=== PATIENT | male | born 1935 | race Caucasian/White ===

== ENCOUNTER 2017-02-20 14:34 | Inpatient (IN) | payer MEDICARE ==
[~2017-02-20] VITALS: Ht 170.2 cm; Wt 75.9 kg
[2017-02-20 14:42] VITALS: BP 160/73; PULSE 71; RESP 16; TEMP 98.4; O2SAT 96
[2017-02-20] MEDS ORDERED: HYDR12.56 PO (15:56)
[2017-02-20] MEDS ORDERED: OMEP20TA93 PO (15:56)
[2017-02-20] MEDS ORDERED: SIMV20TA PO (15:56)
[2017-02-20] MEDS ORDERED: HYDR-3516 PO (15:56)
[2017-02-20] MEDS ORDERED: AMLO10TA2 PO (15:56)
--- NOTE | 2017-02-20 16:22 | PD ---
HPI Chief Complaint: Dizziness Time Seen by Provider: 16:10 Travel History International Travel<30 days: No Contact w/Intl Traveler<30days: No Traveled to known affect area: No History of Present Illness HPI This patient complains of multiple things. For the last couple of days he's had a prominent cough bringing up phlegm. Congested and has had a runny nose. He complains of muscular pains in both legs. He is denies fever. Symptoms severity is moderate. No alleviating factors. Feeling dizzy and lightheaded. He denies room spinning vertigo-type sensations. No headache or chest pain. He has had no syncope. No exacerbating factors. Patient is from out of town. PFSH Past Medical History Cardiovascular Problems: Yes (CABG) ?: Not Past Surgical History Coronary Artery Bypass Graft: Yes (x 5 vessel) Social History Alcohol Use: No Tobacco Use: No Substance Use: No Allergies-Medications (Allergen,Severity, Reaction): Coded Allergies: No Known Allergies (Verified Allergy, Unknown, 02/20/17) Reported Meds & Prescriptions Reported Meds & Active Scripts Active Reported Omeprazole 20 Mg Tab 20 Mg PO DAILY Simvastatin 20 Mg Tab 20 Mg PO DAILY Hydrocodone-Acetaminophen 5-325 mg Tab 1 Tab PO Q4H PRN Hydrochlorothiazide 12.5 Mg Tab 12.5 Mg PO DAILY Amlodipine (Amlodipine Besylate) 10 Mg Tab 10 Mg PO DAILY Review of Systems General / Constitutional: No: Fever Eyes: No: Visual changes HENT: Positive: Lightheadedness, Congestion, No: Headaches Cardiovascular: No: Chest Pain or Discomfort Respiratory: Positive: Cough, No: Shortness of Breath Gastrointestinal: Positive: Nausea, No: Abdominal Pain Genitourinary: No: Dysuria Musculoskeletal: Positive: Myalgias, No: Pain Skin: No Rash Neurologic: Positive: Dizziness, No: Weakness Psychiatric: No: Depression Endocrine: No: Polydipsia Hematologic/Lymphatic: No: Easy Bruising Physical Exam Narrative GENERAL: Well-nourished, well-developed patient in no apparent distress. SKIN: Focused skin assessment reveals no rash and nodules. Skin is Warm and dry. HEAD: Atraumatic. Normocephalic. EYES: Pupils equal and round. No scleral icterus. No injection or drainage. ENT: No nasal bleeding or discharge. Mucous membranes pink and moist. NECK: Trachea midline. No JVD. CARDIOVASCULAR: Regular rate and rhythm. No murmur appreciated. RESPIRATORY: No accessory muscle use. Clear to auscultation. Breath sounds equal bilaterally. GASTROINTESTINAL: Abdomen soft, non-tender, nondistended. Hepatic and splenic margins not palpable. MUSCULOSKELETAL: No obvious deformities. No clubbing. No cyanosis. No edema. NEUROLOGICAL: Awake and alert. No obvious cranial nerve deficits. Motor grossly within normal limits. Normal speech. PSYCHIATRIC: Appropriate mood and affect; insight and judgment normal. Data Data Last Documented VS Vital Signs Date Time Temp Pulse Resp B/P (MAP) Pulse Ox O2 Delivery O2 Flow Rate FiO2 02/20/17 14:42 98.4 71 16 160/73 (102) 96 Orders Orders Iv Access Insert/Monitor (02/20/17 16:17) Complete Blood Count With Diff (02/20/17 16:17) Basic Metabolic Panel (Bmp) (02/20/17 16:17) Electrocardiogram (02/20/17 ) Chest, Single Ap (02/20/17 ) Ondansetron Inj (Zofran Inj) (02/20/17 16:45) Admit Order (Ed Use Only) (02/20/17 17:42) Potassium Chloride Eff (K-Lyte Cl Eff) (02/20/17 17:45) Ns 1000ml Wide Open 2000 Ml/Hr (02/20/17 17:45) Labs Laboratory Tests Test 02/20/17 16:35 White Blood Count 5.1 TH/MM3 Red Blood Count 4.98 MIL/MM3 Hemoglobin 13.1 GM/DL Hematocrit 39.8 % Mean Corpuscular Volume 79.9 FL Mean Corpuscular Hemoglobin 26.4 PG Mean Corpuscular Hemoglobin Concent 33.0 % Red Cell Distribution Width 13.2 % Platelet Count 258 TH/MM3 Mean Platelet Volume 7.1 FL Neutrophils (%) (Auto) 76.1 % Lymphocytes (%) (Auto) 16.8 % Monocytes (%) (Auto) 6.8 % Eosinophils (%) (Auto) 0.2 % Basophils (%) (Auto) 0.1 % Neutrophils # (Auto) 3.9 TH/MM3 Lymphocytes # (Auto) 0.9 TH/MM3 Monocytes # (Auto) 0.3 TH/MM3 Eosinophils # (Auto) 0.0 TH/MM3 Basophils # (Auto) 0.0 TH/MM3 CBC Comment DIFF FINAL Differential Comment Blood Urea Nitrogen 17 MG/DL Creatinine 0.90 MG/DL Random Glucose 134 MG/DL Calcium Level 8.5 MG/DL Sodium Level 116 MEQ/L Potassium Level 2.8 MEQ/L Chloride Level 80 MEQ/L Carbon Dioxide Level 25.6 MEQ/L Anion Gap 10 MEQ/L Estimat Glomerular Filtration Rate 81 ML/MIN MDM Medical Decision Making Medical Screen Exam Complete: Yes Emergency Medical Condition: Yes Medical Record Reviewed: Yes Differential Diagnosis Pneumonia, bronchitis, flu syndrome, hypokalemia, vertigo Narrative Course I have reviewed the patient's electronic medical record. Etiology of the patient's diffuse range of symptoms is unclear from history and physical alone. IV placed CBC is normal Metabolic profile shows profound hyponatremia 116 in profound hypokalemia of 2.8 I reviewed his EKG which shows rate controlled A. fib in the 70s I reviewed his chest x-ray shows cardiomegaly without pulmonary edema Patient is neurologically intact without objective deficit. I don't see evidence of CVA. He has a lot of vague global symptomatology. Symptoms are explained by electrolytes to a large degree. He also appears to be a new onset A. fib I started some normal saline and gave him a potassium replacement dose He will require inpatient hospitalization for correction of sodium and potassium deficits. His hydrochlorothiazide is a likely candidate and he does drink a lot of free water Call is in place to hospitalist to discuss Diagnosis Primary Impression: Acute hyponatremia Additional Impressions: Acute hypokalemia New onset a-fib Admitting Information Admitting Physician Requests: Admit Ángel Rodriguez MD Feb 20, 2017 16:22
--- NOTE | 2017-02-20 16:36 | RADRPT ---
EXAM DATE/TIME: 02/20/2017 16:26 [facility] COMPARISON: No previous studies available for comparison. INDICATIONS : Cough, congestion. MEDICAL HISTORY : None. SURGICAL HISTORY : CABG. ENCOUNTER: Initial ACUITY: 2 days PAIN SCORE: 0/10 LOCATION: Bilateral chest FINDINGS: A single view of the chest demonstrates the lungs to be symmetrically aerated without evidence of mas s, infiltrate or effusion. Mild cardiomegaly. No pulmonary vascular engorgement. Median sternotomy wi res. Osseous structures are intact. CONCLUSION: Mild cardiomegaly. Clear lungs. Jay Seals Jr., MD on February 20, 2017 at 16:33 Board Certified Radiologist. This report was verified electronically.
[2017-02-20] MEDS ORDERED: ONDANSETRON HCL 4 MG/2 ML VIAL IVP ONE (16:45)
[2017-02-20 16:56] LABS: AUTOMATED NEUTROPHIL # 3.9 TH/MM3 (1.8-7.7); BASOPHIL % 0.1 % (0.0-2.0); EOSINOPHIL % 0.2 % (0.0-4.0); HEMATOCRIT 39.8 % (39.0-51.0); HEMO FLAGS DIFF FINAL; LYMPH % 16.8 % (9.0-44.0); LYMPHOCYTE # 0.9 TH/MM3 (1.0-4.8); MEAN CELL VOLUME 79.9 FL (80.0-100.0); MEAN CORPUSCULAR HEMOGLOBIN 26.4 PG (27.0-34.0); MONO % 6.8 % (0.0-8.0); NEUT % 76.1 % (16.0-70.0); PLATELET COUNT 258 TH/MM3 (150-450); RED BLOOD COUNT 4.98 MIL/MM3 (4.50-5.90); RED CELL DISTRIBUTION WIDTH 13.2 % (11.6-17.2); WHITE BLOOD COUNT 5.1 TH/MM3 (4.0-11.0)
[2017-02-20 17:03] LABS: BICARBONATE 25.6 MEQ/L (21.0-32.0)
[2017-02-20 17:05] LABS: POTASSIUM 2.8 MEQ/L (3.5-5.1)
[2017-02-20] MEDS ORDERED: POTASSIUM CHLORIDE 25 MEQ EFFERVESCENT TAB PO ONE ×2 (17:45→23:45)
[2017-02-20] MEDS ORDERED: SODIUM CHLOR 0.9% 1000 ML INJ 1,000 ML IV ONE (17:45)
[2017-02-20] MEDS: SODIUM CHLOR 0.9% 1000 ML INJ 1,000 ML IV SCH (18:14)
[2017-02-20] MEDS ORDERED: ACETAMINOPHEN 325 MG TAB PO PRN (18:15)
[2017-02-20] MEDS ORDERED: NALOXONE HCL 0.4 MG/ML AMP IV PUSH PRN (18:15)
[2017-02-20] MEDS ORDERED: SENNOSIDES 8.6 MG TAB PO PRN (18:15)
[2017-02-20] MEDS ORDERED: SODIUM CHLORIDE 0.9% FLUSH 10 ML FLUSH IV FLUSH PRN (18:15)
[2017-02-20] MEDS ORDERED: ONDANSETRON HCL 4 MG/2 ML VIAL IVP PRN (18:15)
--- NOTE | 2017-02-20 18:24 | HHI.HP ---
HPI Service [facility] Primary Care Physician Non-Staff Admission Diagnosis Hyponatremia,hypokalemia Diagnoses: (1) Acute hypokalemia (2) Acute hyponatremia (3) New onset a-fib Chief Complaint: Dizziness Productive cough Travel History International Travel<30 Days: No Contact w/Intl Traveler <30 Da: No Traveled to Known Affected Are: No History of Present Illness Written by Flavai Horton, acting as scribe for Dr. Regalado on 02/20/17 at 18:14. Mr. Benites is a 81-year-old male patient with a known medical history of hypertension and CAD with previous CABG who presented to the ED with complaints of generalized weakness, dizziness and cough x 1 week. Patient states that he is from [facility] and is traveling with his when he noticed roughly a week ago that he developed a productive cough and nasal congestion which progressively has got worse despite use of OTC robitussin and Mucinex. Patient states he has had no appetite and has not ate very much in the past week. Does admit to a spell of lightheadedness and dizziness this am when getting out of the shower which led to his presentation. Denies any recent chest pain, headache , shortness of breath, fevers, abdominal pain, nausea, vomiting, diarrhea or dysuria. Review of Systems Constitutional: COMPLAINS OF: Chills, Dizziness, DENIES: Fever Eyes: DENIES: Blurred vision, Diplopia Ears, nose, mouth, throat: DENIES: Hearing loss Respiratory: COMPLAINS OF: Cough, Sputum production, Shortness of breath Cardiovascular: DENIES: Chest pain Gastrointestinal: DENIES: Abdominal pain, Bloody stools, Constipation, Diarrhea , Nausea Hematologic/lymphatic: DENIES: Bruising Psychiatric: DENIES: Anxiety Except as stated in HPI: all other systems reviewed are Neg Past Family Social History Past Medical History CAD with history of CABG Hypertension Past Surgical History CABG x 5 vessels Bilateral hip replacement Prostatectomy Reported Medications Active Reported Omeprazole 20 Mg Tab 20 Mg PO DAILY Simvastatin 20 Mg Tab 20 Mg PO DAILY Hydrocodone-Acetaminophen 5-325 mg Tab 1 Tab PO Q4H PRN Hydrochlorothiazide 12.5 Mg Tab 12.5 Mg PO DAILY Amlodipine (Amlodipine Besylate) 10 Mg Tab 10 Mg PO DAILY Allergies: Coded Allergies: No Known Allergies (Verified Allergy, Unknown, 02/20/17) Active Ordered Medications Current Medications Medications (Trade) Dose Ordered Sig/Nereyda Route Start Time Stop Time Status Last Admin Sodium Chloride 1,000 ml @ 250 mls/hr Q4H ONCE IV 02/20/17 17:45 02/20/17 21:44 Family History Maternal and paternal medical history significant for cardiovascular disease. Social History Denies any tobacco use. Denies any alcohol use. Denies any illicit drug use. Physical Exam Vital Signs Vital Signs Date Time Temp Pulse Resp B/P (MAP) Pulse Ox O2 Delivery O2 Flow Rate FiO2 02/20/17 14:42 98.4 71 16 160/73 (102) 96 Physical Exam GENERAL: This is a well-nourished, well-developed patient, lying in bed comfortably in no apparent distress. SKIN: No rashes, ecchymoses or lesions. Warm and dry. HEENT: Atraumatic. Normocephalic. Pupils equal round and reactive. Extraocular motions intact. No scleral icterus. No injection or drainage. Nose without bleeding. Airway patent. NECK: Trachea midline. No JVD or lymphadenopathy. Supple, nontender, no meningeal signs. CARDIOVASCULAR: Irregularly irregular rhythm, No murmurs, gallops, or rubs. RESPIRATORY: Clear to auscultation. Breath sounds equal bilaterally. No wheezes , rales, or rhonchi. GASTROINTESTINAL: Abdomen soft, non-tender, nondistended. No guarding. MUSCULOSKELETAL: Extremities without clubbing, cyanosis, or edema. No joint tenderness, effusion, or edema noted. NEUROLOGICAL: Awake and alert. Cranial nerves II through XII intact. Motor and sensory grossly within normal limits. Five out of 5 muscle strength in all muscle groups. Normal speech. Laboratory Laboratory Tests Test 02/20/17 16:35 White Blood Count 5.1 Red Blood Count 4.98 Hemoglobin 13.1 Hematocrit 39.8 Mean Corpuscular Volume 79.9 Mean Corpuscular Hemoglobin 26.4 Mean Corpuscular Hemoglobin Concent 33.0 Red Cell Distribution Width 13.2 Platelet Count 258 Mean Platelet Volume 7.1 Neutrophils (%) (Auto) 76.1 Lymphocytes (%) (Auto) 16.8 Monocytes (%) (Auto) 6.8 Eosinophils (%) (Auto) 0.2 Basophils (%) (Auto) 0.1 Neutrophils # (Auto) 3.9 Lymphocytes # (Auto) 0.9 Monocytes # (Auto) 0.3 Eosinophils # (Auto) 0.0 Basophils # (Auto) 0.0 CBC Comment DIFF FINAL Differential Comment Blood Urea Nitrogen 17 Creatinine 0.90 Random Glucose 134 Calcium Level 8.5 Sodium Level 116 Potassium Level 2.8 Chloride Level 80 Carbon Dioxide Level 25.6 Anion Gap 10 Estimat Glomerular Filtration Rate 81 Result Diagram: 02/20/17 1635 02/20/17 1635 Imaging Last Impressions Chest X-Ray 02/20/17 0000 Signed Impressions: Service Date/Time: Monday, February 20, 2017 16:26 - CONCLUSION: Mild cardiomegaly. Clear lungs. Jay Seals Jr., MD Septic Shock Reassessment Septic shock perfusion: reassessment completed Caprini VTE Risk Assessment Caprini VTE Risk Assessment: Mod/High Risk (score >= 2) Caprini Risk Assessment Model Point Value = 1 Point Value = 2 Point Value = 3 Point Value = 5 Age 41-60 Minor surgery BMI > 25 kg/m2 Swollen legs Varicose veins or History of unexplained or recurrent spontaneous Oral contraceptives or hormone replacement Sepsis (< 1 month) Serious lung disease, including pneumonia (< 1 month) Abnormal pulmonary function Acute myocardial infarction Congestive heart failure (< 1 month) History of inflammatory bowel disease Medical patient at bed rest Age 61-74 Arthroscopic surgery Major open surgery (> 45 min) Laparoscopic surgery (> 45 min) Malignancy Confined to bed (> 72 hours) Immobilizing plaster cast Central venous access Age >= 75 History of VTE Family history of VTE Factor V Leiden Prothrombin [id number] Lupus anticoagulant Anticardiolipin antibodies Elevated serum homocysteine Heparin-induced thrombocytopenia Other congenital or acquired thrombophilia Stroke (< 1 month) Elective arthroplasty Hip, pelvis, or leg fracture Acute spinal cord injury (< 1 month) Prophylaxis Regimen Total Risk Factor Score Risk Level Prophylaxis Regimen 0-1 Low Early ambulation 2 Moderate Order ONE of the following: *Sequential Compression Device (SCD) *Heparin 5000 units SQ BID 3-4 Higher Order ONE of the following medications: *Heparin 5000 units SQ TID *Enoxaparin/Lovenox 40 mg SQ daily (WT < 150 kg, CrCl > 30 mL/min) *Enoxaparin/Lovenox 30 mg SQ daily (WT < 150 kg, CrCl > 10-29 mL/min) *Enoxaparin/Lovenox 30 mg SQ BID (WT < 150 kg, CrCl > 30 mL/min) AND/OR *Sequential Compression Device (SCD) 5 or more Highest Order ONE of the following medications: *Heparin 5000 units SQ TID (Preferred with Epidurals) *Enoxaparin/Lovenox 40 mg SQ daily (WT < 150 kg, CrCl > 30 mL/min) *Enoxaparin/Lovenox 30 mg SQ daily (WT < 150 kg, CrCl > 10-29 mL/min) *Enoxaparin/Lovenox 30 mg SQ BID (WT < 150 kg, CrCl > 30 mL/min) AND *Sequential Compression Device (SCD) Assessment and Plan Problem List: (1) Acute hyponatremia ICD Code: E87.1 - Hypo-osmolality and hyponatremia Status: Acute Plan: NA 116 on presentation. Will order a urine osmolarity and sodium. Follow. Will add a phosphorus level to labs as well, follow. Continue neuro checks. Will also check a TSH. Control nausea, Zofran available PRN. Follow BMP in am. (2) Acute hypokalemia ICD Code: E87.6 - Hypokalemia Status: Acute Plan: Potassium 2.8 on presentation. Monitor for arrhythmias on telemetry. Replacement ordered. Follow BMP in am. (3) New onset a-fib ICD Code: I48.91 - Unspecified atrial fibrillation Status: Acute Plan: Patient denies any history of arrhythmia or atrial fibrillation. Will continue on cardiac telemetry. Control rate. (4) Hypertension ICD Code: I10 - Essential (primary) hypertension Plan: Continue home Norvasc. Monitor BP trend. Will hold HCTZ. CXR reviewed showing some mild cardiomegaly. Clear lungs. (5) Productive cough ICD Code: R05 - Cough Plan: CXR reviewed showing mild cardiomegaly. Clear lungs. Supportive care. (6) Hyperlipidemia ICD Code: E78.5 - Hyperlipidemia, unspecified Plan: Continue home statin. DVT Prophylaxis: SCDs. Code Status Full code. Discussed Condition With Patient Physician Certification 2 Midnight Certification Type: Admission for Inpatient Services Order for Inpatient Services The services are ordered in accordance with Medicare regulations or non- Medicare payer requirements, as applicable. In the case of services not specified as inpatient-only, they are appropriately provided as inpatient services in accordance with the 2-midnight benchmark. Estimated LOS (days): 2 2 days is the estimated time the patient will need to remain in the hospital, assuming treatment plan goals are met and no additional complications. Post-Hospital Plan: Home Medical Decision Making Impression and Plan This note was transcribed by [email or web address] [[email or web address]]. I, Dr. Heather Regalado personally performed the history, physical exam, and medical decision making; and confirmed the accuracy of the information in the transcribed note. Discussed with patient and spouse ivf fluids s apartmenterial bmp Authenticated by Dr. Heather Regalado on 02/20/17 at 18:25. Flavia Horton Feb 20, 2017 18:24 Heather Regalado MD Feb 20, 2017 18:26
[2017-02-20 18:52] LABS: BLOOD, URINE SMALL (NEG); GLUCOSE,URINE NEG (NEG); KETONE, URINE NEG (NEG); NITRITE,URINE NEG (NEG)
[2017-02-20 18:57] LABS: URINE COLOR YELLOW (YELLW/STRAW)
[2017-02-20 18:59] LABS: SQUAMOUS EPITHELIAL CELL URINE 0-5 /hpf (0-5); WBC, URINE 0-2 /hpf (0-5)
[2017-02-20 19:00] LABS: COMMENT (UR) CULT NOT INDICATED; CULTURE IF INDICATED CULT NOT INDICATED; HYALINE CAST, URINE 0-2 /lpf (RARE); MUCUS URINE OCC /lpf (OCC)
[2017-02-20 19:49] VITALS: BP 174/68; PULSE 86; RESP 16; O2SAT 99
[2017-02-20] MEDS: SODIUM CHLORIDE 0.9% FLUSH 10 ML FLUSH IV FLUSH SCH (20:52)
[2017-02-20 21:30] VITALS: BP 153/71; PULSE 70; RESP 20; TEMP 97.2; O2SAT 94
[2017-02-20 22:00] VITALS: PULSE 71
[2017-02-20] MEDS ORDERED: ACETAMINOPHEN/HYDROcodone 325 MG/5 MG TAB PO ONE (22:45)
[2017-02-20 23:23] LABS: BICARBONATE 25.1 MEQ/L (21.0-32.0)
[2017-02-20 23:25] LABS: POTASSIUM 2.9 MEQ/L (3.5-5.1)
[2017-02-21] VITALS: BP 143/78; PULSE 72; RESP 20; TEMP 96.3; O2SAT 97
[2017-02-21] MEDS: SODIUM CHLOR 0.9% 1000 ML INJ 1,000 ML IV SCH ×2 (03:42→14:14)
[2017-02-21 04:00] VITALS: BP 158/74; PULSE 69; RESP 20; TEMP 96.9; O2SAT 97
[2017-02-21 06:31] LABS: AUTOMATED NEUTROPHIL # 1.7 TH/MM3 (1.8-7.7); BASOPHIL % 0.4 % (0.0-2.0); EOSINOPHIL % 1.3 % (0.0-4.0); HEMATOCRIT 39.3 % (39.0-51.0); HEMO FLAGS DIFF FINAL; LYMPH % 40.9 % (9.0-44.0); LYMPHOCYTE # 1.6 TH/MM3 (1.0-4.8); MEAN CELL VOLUME 81.2 FL (80.0-100.0); MEAN CORPUSCULAR HEMOGLOBIN 26.2 PG (27.0-34.0); MEAN CORPUSCULAR HGB CONC 32.2 % (32.0-36.0); MONO % 11.9 % (0.0-8.0); NEUT % 45.5 % (16.0-70.0); PLATELET COUNT 245 TH/MM3 (150-450); RED BLOOD COUNT 4.84 MIL/MM3 (4.50-5.90); RED CELL DISTRIBUTION WIDTH 13.4 % (11.6-17.2); WHITE BLOOD COUNT 3.8 TH/MM3 (4.0-11.0)
[2017-02-21 06:58] LABS: BICARBONATE 26.2 MEQ/L (21.0-32.0); POTASSIUM 3.2 MEQ/L (3.5-5.1)
[2017-02-21 08:00] VITALS: BP 171/76; PULSE 63; PULSE 80; RESP 18; TEMP 96.7; O2SAT 98
[2017-02-21] MEDS: SODIUM CHLORIDE 0.9% FLUSH 10 ML FLUSH IV FLUSH SCH ×2 (11:06→20:55)
[2017-02-21] MEDS: PRAVASTATIN SOD 40 MG TAB PO SCH (11:06)
[2017-02-21 12:00] VITALS: BP 161/73; PULSE 68; RESP 18; TEMP 97.9; O2SAT 96
[2017-02-21] MEDS: ACETAMINOPHEN/HYDROcodone 325 MG/5 MG TAB PO PRN ×2 (12:34→20:55)
[2017-02-21 16:00] VITALS: BP 152/71; PULSE 66; RESP 18; TEMP 95.3; O2SAT 98
--- NOTE | 2017-02-21 16:03 | EKG ---
Date Performed: 02/20/2017 Time Performed: 16:34:03 PTAGE: 81 years EKG: Sinus rhythm POSSIBLE LEFT VENTRICULAR HYPERTROPHY INFERIOR MYOCARDIAL INFARCTION ST DEPRESSION, CONSIDER SUBENDO CARDIAL INJURY Clinical corrolation is suggested. ABNORMAL ECG NO PREVIOUS TRACING DOCTOR: Jony Harrell Interpretating Date/Time 02/21/2017 16:02:14
--- NOTE | 2017-02-21 16:20 | HHI.PR ---
Subjective Remarks Patient seen and examined today for follow-up on hyponatremia, electrolyte abnormalities, new onset atrial fibrillation. Patient states that he still feel a little weak. Denies any chest pain, shortness of breath, dyspnea. Objective Vital Signs Date Time Temp Pulse Resp B/P (MAP) Pulse Ox O2 Delivery O2 Flow Rate FiO2 02/21/17 13:57 20 02/21/17 12:00 97.9 68 18 161/73 (102) 96 02/21/17 08:00 80 02/21/17 08:00 96.7 63 18 171/76 (107) 98 02/21/17 04:00 96.9 69 20 158/74 (102) 97 02/21/17 00:00 96.3 72 20 143/78 (99) 97 02/20/17 22:00 71 02/20/17 21:30 97.2 70 20 153/71 (98) 94 02/20/17 19:49 86 16 174/68 (103) 99 I/O 02/20/17 02/20/17 02/20/17 02/21/17 02/21/17 02/21/17 07:00 15:00 23:00 07:00 15:00 23:00 Intake Total 50 ml 1690 ml 820 ml Output Total 400 ml 650 ml Balance -350 ml 1040 ml 820 ml Intake Oral 480 ml IV Total 50 ml 1210 ml 820 ml Output Urine Total 400 ml 650 ml # Voids 2 Result Diagram: 02/21/17 0600 02/21/17 0600 Imaging Last Impressions Chest X-Ray 02/20/17 0000 Signed Impressions: Service Date/Time: Monday, February 20, 2017 16:26 - CONCLUSION: Mild cardiomegaly. Clear lungs. Jay Seals Jr., MD Objective Remarks GENERAL: Well-developed, well-nourished, in no acute distress. alert and orientated HEENT: Head is normocephalic without any lesions or masses noted. Facial features are symmetric. Eyes: Conjunctivae were clear. CARDIAC: Regular rhythm, regular rate. S1/S2 are heard. No murmurs gallops or rubs. LUNGS: Clear to auscultation bilaterally. No wheeze, rhonchi or rales. No use of accessory muscles on inspiration or expiration. ABDOMEN: Soft, nontender. Nondistended. Bowel sounds heard in all 4 quadrants. No organomegaly or masses. Negative rebound, negative guarding EXTREMITIES: No edema, pulses are equal bilaterally. No cyanosis or clubbing NEUROLOGY: Mood and affect appear appropriate. Cranial nerves II through XII grossly intact. Moving all extremities, speech is clear A/P Assessment and Plan Hyponatremia, improving Patient presented to the hospital secondary to generalized weakness, dizziness Serum osmolality 252, urine osmolality 520, urine sodium 58 Discontinue hydrochlorothiazide Continue to monitor sodium level, Hypokalemia Continue monitor replete as needed New onset atrial fibrillation, rate controlled CHADS 2 will require anticoagulation Echocardiogram: Ejection fraction 55-60%. Systolic function was normal. Grade 1 diastolic dysfunction Hypertension, coronary artery disease, hyperlipidemia Blood pressure are controlled Home medications continued to include Norvasc Lopressor 12.5 mg twice daily DVT prevention Sequential compression devices Discharge Planning Discharge planning 24-48 hours after echocardiogram reported, sodium improved Ángel Krishnan Feb 21, 2017 16:20
--- NOTE | 2017-02-21 16:49 | ECHRPT ---
Indication: Persistent atrial fibrillation CONCLUSIONS Technically difficult study. The left ventricular systolic function is normal with an estimated ejection fraction in the range of 55-60%. Mild concentric left ventricular hypertrophy. Doppler parameters are consistent with impaired left ventricular relaxtion (grade 1 diastolic dysfun ction). Trace mitral valve regurgitation. There is mild tricuspid valve regurgitation. BP: / HR: 60 Rhythm: Sinus MEASUREMENTS (Male / Female) Normal Values Technical Quality:Technically difficult study 2D ECHO LV Diastolic Diameter PLAX 4.8 cm 4.2 - 5.9 / 3.9 - 5.3 cm LV Systolic Diameter PLAX 3.6 cm IVS Diastolic Thickness 1.3 cm 0.6 - 1.0 / 0.6 - 0.9 cm LVPW Diastolic Thickness 1.3 cm 0.6 - 1.0 / 0.6 - 0.9 cm LV Relative Wall Thickness 0.6 LVOT Diameter 2.2 cm M-MODE Aortic Root Diameter MM 3.5 cm LA Systolic Diameter MM 4.6 cm LA Ao Ratio MM 1.3 AV Cusp Separation MM 2.2 cm DOPPLER AV Peak Velocity 110.0 cm/s AV Peak Gradient 4.8 mmHg LVOT Peak Velocity 68.1 cm/s LVOT Peak Gradient 1.9 mmHg AV Area Cont Eq pk 2.4 cm Mitral E Point Velocity 77.5 cm/s Mitral A Point Velocity 90.3 cm/s Mitral E to A Ratio 0.9 LV E' Lateral Velocity 9.8 cm/s Mitral E to LV E' Lateral Ratio 7.9 LV E' Septal Velocity 8.8 cm/s Mitral E to LV E' Septal Ratio 8.8 TR Peak Velocity 266.0 cm/s TR Peak Gradient 28.3 mmHg Right Atrial Pressure 10.0 mmHg Pulmonary Artery Systolic Pressu 38.3 mmHg Right Ventricular Systolic Press 38.3 mmHg PV Peak Velocity 88.2 cm/s PV Peak Gradient 3.1 mmHg FINDINGS LEFT VENTRICLE The left ventricular systolic function is normal with an estimated ejection fraction in the range of 55-60%. Normal left ventricular size. Mild concentric left ventricular hypertrophy. Doppler parameters are consistent with impaired left ventricular relaxtion (grade 1 diastolic dysfun ction). RIGHT VENTRICLE Normal right ventricular size and systolic function. LEFT ATRIUM The left atrial size is upper limits of normal. RIGHT ATRIUM The right atrial size is normal. ATRIAL SEPTUM Normal atrial septal thickness. AORTA The aortic root and proximal ascending aorta are normal in size on limited imaging. MITRAL VALVE Mild mitral annular calcification. Structurally normal mitral valve. Trace mitral valve regurgitation. No mitral valve stenosis. AORTIC VALVE Probably trileaflet aortic valve. No aortic valve stenosis or regurgitation. Aortic valve sclerosis is present. TRICUSPID VALVE Structurally normal tricuspid valve. There is mild tricuspid valve regurgitation. No tricuspid valve stenosis. The estimated pulmonary arterial pressure is 38.3 mmHg. PULMONARY VALVE No pulmonary valve regurgitation or stenosis. VESSELS The inferior vena cava is normal in size. PERICARDIUM No pericardial effusion. Carmelo Hankins DO (Electronically Signed) Final Date:21 February 2017 16:49
[2017-02-21] MEDS ORDERED: POTASSIUM CHLORIDE 25 MEQ EFFERVESCENT TAB PO ONE (17:00)
[2017-02-21] MEDS ORDERED: PILL SPLITTER OTHER PRN (17:30)
--- NOTE | 2017-02-21 17:38 | EKG ---
Date Performed: 02/21/2017 Time Performed: 16:29:01 PTAGE: 81 years EKG: Sinus rhythm WITH OCCASIONAL VENTRICULAR PREMATURE COMPLEXES INFERIOR MYOCARDIAL INFARCTION Nonspecific T wave ch anges ABNORMAL ECG No significant change from prior electrocardiogram. PREVIOUS TRACING : 02/20/2017 16.34 DOCTOR: Kiran Pena Interpretating Date/Time 02/21/2017 17:37:22
[2017-02-21 20:00] VITALS: BP 162/74; PULSE 62; PULSE 66; RESP 18; TEMP 96.7; O2SAT 97
[2017-02-21] MEDS: METOPROLOL TARTRATE 25 MG TAB PO SCH (20:55)
[2017-02-22] VITALS: BP 135/63; PULSE 58; RESP 16; TEMP 97.8; O2SAT 94
[2017-02-22] MEDS: SODIUM CHLOR 0.9% 1000 ML INJ 1,000 ML IV SCH (00:05)
[2017-02-22] MEDS: ACETAMINOPHEN/HYDROcodone 325 MG/5 MG TAB PO PRN ×2 (02:47→07:57)
[2017-02-22 04:00] VITALS: BP 141/66; PULSE 55; RESP 16; TEMP 98.8; O2SAT 94
[2017-02-22 06:02] LABS: AUTOMATED NEUTROPHIL # 2.3 TH/MM3 (1.8-7.7); BASOPHIL % 0.6 % (0.0-2.0); EOSINOPHIL # 0.1 TH/MM3 (0-0.4); EOSINOPHIL % 2.1 % (0.0-4.0); HEMATOCRIT 38.5 % (39.0-51.0); HEMO FLAGS DIFF FINAL; LYMPH % 33.9 % (9.0-44.0); LYMPHOCYTE # 1.5 TH/MM3 (1.0-4.8); MEAN CELL VOLUME 81.1 FL (80.0-100.0); MEAN CORPUSCULAR HEMOGLOBIN 26.5 PG (27.0-34.0); MEAN CORPUSCULAR HGB CONC 32.7 % (32.0-36.0); MONO % 11.1 % (0.0-8.0); NEUT % 52.3 % (16.0-70.0); PLATELET COUNT 268 TH/MM3 (150-450); RED BLOOD COUNT 4.75 MIL/MM3 (4.50-5.90); RED CELL DISTRIBUTION WIDTH 13.6 % (11.6-17.2); WHITE BLOOD COUNT 4.4 TH/MM3 (4.0-11.0)
[2017-02-22 06:52] LABS: BICARBONATE 24.1 MEQ/L (21.0-32.0); MAGNESIUM 1.7 MG/DL (1.5-2.5); POTASSIUM 3.7 MEQ/L (3.5-5.1)
[2017-02-22] MEDS: METOPROLOL TARTRATE 25 MG TAB PO SCH (07:57)
[2017-02-22] MEDS: PRAVASTATIN SOD 40 MG TAB PO SCH (07:58)
[2017-02-22 08:00] VITALS: BP 115/62; PULSE 50; PULSE 54; RESP 16; TEMP 97.9; O2SAT 97
[2017-02-22 08:57] VITALS: RESP 20
[2017-02-22] MEDS: SODIUM CHLORIDE 0.9% FLUSH 10 ML FLUSH IV FLUSH SCH (09:00)
--- NOTE | 2017-02-22 10:48 | HHI.DCPOC ---
Discharge Care Plan Diagnosis: (1) Acute hyponatremia (2) New onset a-fib Goals to Promote Your Health * To prevent worsening of your condition and complications * To maintain your health at the optimal level Directions to Meet Your Goals Take your medications as prescribed Follow your dietary instruction Follow activity as directed Keep your appointments as scheduled Take your immunizations and boosters as scheduled If your symptoms worsen call your PCP, if no PCP go to Urgent Care Center or Emergency Room Smoking is Dangerous to Your Health. Avoid second hand smoke Call the 24-hour hour crisis hotline for domestic abuse at Ángel Krishnan Feb 22, 2017 10:48
[2017-02-22] MEDS ORDERED: METO25TA3 PO (10:54)
[2017-02-22] MEDS ORDERED: APIX2.5T PO (10:54)
[2017-02-22] MEDS ORDERED: APIXABAN 2.5 MG TABLET PO ONE (11:00)
--- NOTE | 2017-02-22 14:07 | HHI.DS ---
Discharge Summary Admission Date Feb 20, 2017 at 17:42 Discharge Date: Feb 22, 2017 Admitting Diagnosis Hyponatremia,hypokalemia (1) Acute hyponatremia ICD Code: E87.1 - Hypo-osmolality and hyponatremia Diagnosis: Principal Status: Acute (2) Acute hypokalemia ICD Code: E87.6 - Hypokalemia Diagnosis: Principal Status: Acute (3) New onset a-fib ICD Code: I48.91 - Unspecified atrial fibrillation Diagnosis: Principal Status: Acute (4) Hypertension ICD Code: I10 - Essential (primary) hypertension Status: Chronic (5) Productive cough ICD Code: R05 - Cough (6) Hyperlipidemia ICD Code: E78.5 - Hyperlipidemia, unspecified Status: Chronic Procedures Echocardiogram: Patient with normal systolic function, ejection fraction 55-60% . Trace of mitral valve regurgitation, mild tricuspid valve regurgitation, grade 1 diastolic dysfunction Brief History - From Admission Written by Flavia Horton, acting as scribe for Dr. Regalado on 02/20/17 at 18:14. Mr. Benites is a 81-year-old male patient with a known medical history of hypertension and CAD with previous CABG who presented to the ED with complaints of generalized weakness, dizziness and cough x 1 week. Patient states that he is from [facility] and is traveling with his when he noticed roughly a week ago that he developed a productive cough and nasal congestion which progressively has got worse despite use of OTC robitussin and Mucinex. Patient states he has had no appetite and has not ate very much in the past week. Does admit to a spell of lightheadedness and dizziness this am when getting out of the shower which led to his presentation. Denies any recent chest pain, headache , shortness of breath, fevers, abdominal pain, nausea, vomiting, diarrhea or dysuria. CBC/BMP: 02/22/17 0540 02/22/17 0540 Significant Findings Laboratory Tests Test 02/20/17 16:35 02/20/17 18:39 02/20/17 18:46 02/20/17 22:02 Mean Corpuscular Volume 79.9 FL (80.0-100.0) Mean Corpuscular Hemoglobin 26.4 PG (27.0-34.0) Neutrophils (%) (Auto) 76.1 % (16.0-70.0) Lymphocytes # (Auto) 0.9 TH/MM3 (1.0-4.8) Random Glucose 134 MG/DL (74-106) Sodium Level 116 MEQ/L (136-145) 120 MEQ/L (136-145) Potassium Level 2.8 MEQ/L (3.5-5.1) 2.9 MEQ/L (3.5-5.1) Chloride Level 80 MEQ/L (98-107) 84 MEQ/L (98-107) Estimat Glomerular Filtration Rate 81 ML/MIN (>89) 85 ML/MIN (>89) Urine Protein 300 OR GREATER mg/dL Urine Occult Blood SMALL (NEG) Urine RBC 4-9 /hpf (0-3) Serum Osmolality 252 MOSM/KG (275-295) Calcium Level 8.1 MG/DL (8.5-10.1) Test 02/21/17 06:00 02/22/17 05:40 White Blood Count 3.8 TH/MM3 (4.0-11.0) Hemoglobin 12.7 GM/DL (13.0-17.0) 12.6 GM/DL (13.0-17.0) Mean Corpuscular Hemoglobin 26.2 PG (27.0-34.0) 26.5 PG (27.0-34.0) Monocytes (%) (Auto) 11.9 % (0.0-8.0) 11.1 % (0.0-8.0) Neutrophils # (Auto) 1.7 TH/MM3 (1.8-7.7) Calcium Level 8.0 MG/DL (8.5-10.1) 8.2 MG/DL (8.5-10.1) Sodium Level 124 MEQ/L (136-145) 132 MEQ/L (136-145) Potassium Level 3.2 MEQ/L (3.5-5.1) Chloride Level 89 MEQ/L (98-107) Estimat Glomerular Filtration Rate 88 ML/MIN (>89) 86 ML/MIN (>89) Hematocrit 38.5 % (39.0-51.0) Imaging Last Impressions Chest X-Ray 02/20/17 0000 Signed Impressions: Service Date/Time: Monday, February 20, 2017 16:26 - CONCLUSION: Mild cardiomegaly. Clear lungs. Jay Seals Jr., MD Hospital Course 81 year-old male with known history of coronary artery disease, coronary bypass surgery, hypertension who presented to hospital originally because of generalized weakness, dizziness and cough for one week. Patient is traveling from [place] in the way down to [place]. Patient noticed that one week history of productive cough which he was using Robitussin and Mucinex. He started developing lightheadedness, dizziness and generalized weakness so he came to the hospital for evaluation. Patient had workup done emergency department and is indicated by ER documentation that the patient had atrial fibrillation with heart rate of 70, laboratory studies indicate significant hyponatremia. For those reasons is recommended patient admitted to hospital for further evaluation and management. Patient was admitted and was started on IV fluids. Review of his home medications were performed and HCTZ was held. Patient's sodium did improve. During the patient's stay reviewed telemetry which did show episodes of atrial fibrillation. Echocardiogram was performed. Rate has been controlled. Patient did have mild elevation of blood pressure and he was started on Lopressor 12.5 mg twice daily. Blood pressure improved as well as additional rate control. Patient was started on anticoagulation to include Eliquis because of chads score 2. Patient clinically improved at this time. He is very eager to go home. Will plan discharge accordingly. Patient was notified to follow-up with primary medical doctor within a week. Pt Condition on Discharge: Stable Discharge Disposition: Discharge Home Discharge Time: > 30 minutes Discharge Instructions DIET: Follow Instructions for: Heart Healthy Diet Activities you can perform: Regular-No Restrictions Activities to Avoid: Driving for 24 hrs Follow up Referrals: PCP Follow-up - 1 Week New Medications: Apixaban (Eliquis) 2.5 Mg Tab 2.5 MG PO BID for Blood Clot Prevention, #60 TAB 0 Refills Metoprolol Tartrate (Metoprolol Tartrate) 25 Mg Tab 12.5 MG PO Q12HR for atrial fibrillation, #60 TAB Continued Medications: Amlodipine (Amlodipine) 10 Mg Tab 10 MG PO DAILY for Blood Pressure Management, #30 TAB 0 Refills Hydrocodone-Acetaminophen (Hydrocodone-Acetaminophen) 5-325 mg Tab 1 TAB PO Q4H PRN for PAIN, TAB 0 Refills Omeprazole (Omeprazole) 20 Mg Tab 20 MG PO DAILY, #30 TAB 0 Refills Simvastatin (Simvastatin) 20 Mg Tab 20 MG PO DAILY for Cholesterol Management, #30 TAB 0 Refills Discontinued Medications: Hydrochlorothiazide (Hydrochlorothiazide) 12.5 Mg Tab 12.5 MG PO DAILY, #30 TAB 0 Refills Ángel Krishnan Feb 22, 2017 14:07
== END 2017-02-22 12:10 | disposition home or self-care (01) | DRG 309 ==
LOC: PHED 14:34 → PHEDA 17:42 → PH3A 20:23
PROVIDERS: ADMIT Hospitalist; ATTEND Hospitalist
DX: I48.91 Unspecified atrial fibrillation (principal); E87.1 Hypo-osmolality and hyponatremia; I11.9 Hypertensive heart disease without heart failure; I25.10 Atherosclerotic heart disease of native coronary artery without angina pectoris; E87.6 Hypokalemia; E78.5 Hyperlipidemia, unspecified; R05 Cough; I08.1 Rheumatic disorders of both mitral and tricuspid valves; Z95.1 Presence of aortocoronary bypass graft; Z96.643 Presence of artificial hip joint, bilateral
CPT/HCPCS: 71010; 80048; 81001; 83735; 83930; 83935; 84100; 84300; 84443; 85025; 93005; 93306; 96374; J2405; J7030